=== PATIENT | male | born 1965 | race Caucasian/White ===

== ENCOUNTER 2025-04-10 13:32 | Inpatient (IN) ==
--- NOTE | 2025-04-10 13:59 | Emergency Department Note ---
Impression & Plan GI bleed, Anemia, Abdominal pain, Weight loss ED Provider Note CHIEF COMPLAINT: Abdominal pain HISTORY OF PRESENTING ILLNESS: The patient is a 59-year-old male with no reported past medical history who presents to the emergency department with complaints of losing of 48 pounds in 3 months, diffuse abdominal pain, pain that is worse with eating, as well as nausea and vomiting. He has not been evaluated for this. He has not taken any medications for symptom management. He reports being constipated as he is not eating and drinking much. He denies fever, URI symptoms, chest pain, shortness of breath, back or flank pain, urinary symptoms. REVIEW OF SYSTEMS: See HPI for pertinent positives and pertinent negatives. ALLERGIES: NKDA MEDICATIONS: Denies currently taking medication. PAST MEDICAL HISTORY: Denies past medical history. PHYSICAL EXAM: VITALS: Vitals are noted on the nurses note and reviewed by myself. Vital signs stable. GENERAL: 59-year-old male, in no acute distress, nondiaphoretic, well-developed well-nourished. SKIN: Capillary refill less than 2 seconds. HEENT: Normocephalic. PERRLA. EOMI. Nares patent. Mucous membranes moist. Neck is supple without nuchal rigidity. HEART: Regular rate and rhythm without murmurs gallops or rubs. LUNGS: CTA BL without wheezes, rales or rhonchi. No retractions or accessory muscle use. ABDOMEN: Positive BS x 4. Soft, diffuse tenderness upon palpation, without masses or organomegaly. No guarding or rebound tenderness. RECTAL - No rectal fissures. No active bleeding. A sterile, water-soluble lubricant was applied to the examiner's finger prior to internal exam. No rectal vault tenderness. No rectal masses. Stool Guaiac Test: Hemoccult positive. MUSCULOSKELETAL: No gross musculoskeletal defects. NEURO: Patient was alert and oriented to person place and time. No focal neurological deficits. DIFFERENTIAL DIAGNOSIS: PUD, appendicitis, diverticulitis, bowel obstruction, inflammatory bowel disease, renal colic, biliary pathology, pancreatitis, mesenteric ischemia, malignancy, aortic pathology, infection, genitourinary, UTI, perforated viscus, among others. ED COURSE AND MEDICAL DECISION MAKING: HISTORY FROM INDEPENDENT HISTORIAN: The patient himself and his mother. MEDICATIONS GIVEN: 1 L normal saline, pantoprazole 80 mg IV, 2 units of blood MONITOR: Continuous surveillance monitor: Order was placed for continuous surveillance monitor. Patient was placed on the surveillance monitor and continuous pulse ox. Patient was noted to be in normal sinus rhythm at an initial rate of 74 bpm per my interpretation. EKG: EKG was interpreted by myself as normal sinus rhythm. No obvious arrhythmia. No ST or T wave abnormality. NM interval 156 ms. QT interval 444 ms. No previous EKG for comparison. INTERPRETATION OF LABS: I interpreted the labs with full lab results as below in the lab section of this note. Pertinent lab results discussed in the MDM section below. INTERPRETATION OF IMAGING: Imaging studies were interpreted by myself and read by radiology as per the imaging section of this note. Chest x-ray - No acute cardiopulmonary finding. CT abdomen pelvis - Suspicious for gastritis with possible gastric ulcer. Recommend correlating with endoscopy. No bowel obstruction. Trace pelvic ascites. Colonic diverticulosis. CONSULTATIONS: On-call [facility]ist - Presented the patient to the provider. Patient's hemoglobin is 6.0. 2 units of blood ordered. CT abdomen pelvis suspicious for gastric ulcer. Hemoccult positive. Patient's nausea and pain controlled. They agreed to evaluate the patient and admit to medicine. CRITICAL CARE: I have personally spent greater than 38 minutes of critical care time in the direct management of this patient. This includes bedside care, interpretation of diagnostic studies, and testing, discussion with consultants, patient, and family members, and other required patient management activities. This 38 minutes is in excess of all separately billable procedures. [facility] SUMMARY: I evaluated the 59-year-old male who presents to the ER due to 48 pound weight loss in 3 months and diffuse abdominal pain with associated nausea and vomiting. See HPI and PE above. Patient's vitals are stable. Denies the need for pain or symptom management. 1 L normal saline given. Labs obtained showing no leukocytosis. RBC lowered 2.55. Hemoglobin 6.0. Hematocrit 19.6. 2 units blood ordered. EG initial rate 74 bpm normal sinus rhythm. No obvious abnormality. Coagulation panel within normal limits. No electrolyte abnormality. No DASHAWN. Lipase 43. Troponin 4.5. Urinalysis obtained showing 1+ ketones. No hematuria or bacteriuria. Chest x-ray shows no acute finding. CT abdomen pelvis showing gastritis with possible gastric ulcer. No other abnormality. Hemoccult positive. Patient's presentation consistent with GI bleed. All laboratory and imaging results thoroughly reviewed with the patient and mother. Consultation with the on-call [facility] hospitalist can be seen above. Additionally Protonix given for symptom management. Hospitalist is agreeable to admission to medicine. Patient is agreeable to admission and all questions answered. The patient was admitted in good condition. DIAGNOSIS: GI bleed, anemia, abdominal pain, weight loss The chart was completed utilizing [employer] voice recognition software. Grammatical errors, random word insertions, pronoun errors, and incomplete sentences are an occasional consequence of this system due to software limitations, ambient noise, and hardware issues. Any formal questions or concerns about the content, text, or information contained within the body of this dictation should be directly addressed to the provider for clarification. Attending Attestation: I Viktor Taveras MD I have reviewed the advanced practitioner's documentation and agree with the plan of care. I accept the responsibility for the associated risk of managing the patient. I performed a substantive portion of the visit including involvement in all aspects of medical decision making. Past Med/Surg History Problem List Abnormal finding on imaging Weight loss (Acute) Anemia (Acute) GI bleed (Acute) Abdominal pain (Acute) Medical History Tobacco use Surgical History Hx of tonsillectomy History of appendectomy Family History Other Coronary heart disease Diabetes Hypertension Social History Smoking Status: Current every day smoker Tobacco Type: Cigarettes Cigarettes Per Day: 5-7; Second Hand Exposure: No; Do You Dip or Chew Tobacco: No; Hx Alcohol Use: Yes Alcohol type: beer and wine Alcohol Intake Frequency: Monthly or Less Hx Substance Use: No Preferred Language: Ethiopian Communication Ability: Effective [employer] Required: No Beliefs That Will Affect Care: None Current Living Situation: Spouse Feels Safe at Home: Yes Assistive Devices: None Allergies Allergies Allergy/AdvReac Type Severity Reaction Status Date / Time No Known Allergies Allergy Unverified 04/11/25 12:26 Home Meds Home Medications Medication Instructions Recorded Confirmed No Known Home Medications 04/10/25 04/10/25 Results & Data (ED) Vital Signs Vital Signs - 24 hr 04/10/25 16:00 Pulse Rate [Apical] 72 Respiratory Rate 16 Blood Pressure [Right Arm] 136/91 Blood Pressure Mean [Right Arm] 106 Pulse Oximetry 100 Oxygen Delivery Method Room Air Laboratory Data 04/11/25 14:41 04/11/25 06:17 Lab Results 04/10/25 04/10/25 04/10/25 Range/Units 14:18 14:56 16:28 WBC 5.90 (4.8-10.8) K/ul RBC 2.55 L (4.70-6.10) M/uL Hgb 6.0 L* (14.0-18.0) g/dl Hct 19.6 L* (42.0-52.0) % MCV 76.9 L (80.0-100.0) fL MCH 23.5 L (25.0-34.0) pg MCHC 30.6 L (32.0-36.0) g/dL RDW Std Deviation 46.7 H (36.4-46.3) fL RDW Coeff of Tami 16.6 H (11.5-14.5) % Plt Count 326 (130-400) K/uL MPV 10.4 (9.4-12.4) fL Immature Gran % (Auto) 0.2 % Neut % (Auto) 69.3 % Lymph % (Auto) 23.1 % [place] % (Auto) 6.6 % Eos % (Auto) 0.3 % Baso % (Auto) 0.5 % Neut # (Auto) 4.09 (1.40-6.50) K/uL Lymph # (Auto) 1.36 (1.20-3.40) K/uL Frederick # (Auto) 0.39 (0.11-0.59) K/uL Eos # (Auto) 0.02 (0.00-0.50) K/uL Baso # (Auto) 0.03 (0.00-0.20) K/uL Immature Gran # (Auto) 0.01 (0.01-0.20) K/uL Polychromasia 1+ Hypochromasia Present PT 11.4 (9.0-12.0) Seconds INR 1.1 (0.9-1.1) Sodium 137 (136-145) mmol/L Potassium 3.9 (3.5-5.1) mmol/L Chloride 105 (98-107) mmol/L Carbon Dioxide 26 (21-32) mmol/L Anion Gap 6 (3-11) BUN 21 (6-23) mg/dl Creatinine 1.03 (0.6-1.4) mg/dl Est Cr Clr Drug Dosing 72.2 ml/min eGFR 82.64 BUN/Creatinine Ratio 20.4 H (10-20) Glucose 99 (70-99(Fasting)) mg/dl Calcium 8.8 (8.6-10.3) mg/dl Iron < 10 L (35-175) mcg/dl Unsaturated IBC 311 (155-355) mcg/dl Transferrin 246 (200-360) mg/dl Ferritin 4.5 L (8-388) ng/ml Total Bilirubin 0.3 (0.2-1.0) mg/dl AST 13 (13-39) U/L ALT 10 (7-52) U/L Alkaline Phosphatase 114 H (34-104) U/L Troponin I High Sens 4.5 (0-20) pg/ml Total Protein 6.0 (6.0-8.3) gm/dl Albumin 3.5 (3.4-5.0) gm/dl Globulin 2.5 (2.5-4.0) gm/dl Albumin/Globulin Ratio 1.4 (0.9-2) Lipase 43 (11-82) U/L Vitamin B12 402 (180-914) pg/ml Folate 15.10 (>5.38) ng/ml Urine Color Yellow Urine Appearance Clear (Clear) Urine pH 5.5 (4.5-7.5) Ur Specific [place] 1.025 (1.000-1.030) Urine Protein Negative (Negative) Urine Glucose (UA) Negative (Negative) Urine Ketones 1+ H (Negative) Urine Blood Negative (Negative) Urine Nitrite Negative (Negative) Urine Bilirubin Negative (Negative) Urine Urobilinogen Negative (Negative) Ur Leukocyte Esterase Negative (Negative) Urine Comment Blood Type A Positive Blood Type Recheck A Positive Antibody Screen NEGATIVE Crossmatch See Detail Administered Medications Pantoprazole Sodium 40 mg/ (Dextrose) 100 mls @ 20 mls/hr IV Q5H [facility] Stop: 05/10/25 16:29 Last Admin: 10/21/25 15:30 Dose: 8 mg/hr, 20 mls/hr Documented By: Infusion: 04/11/25 13:30 Dose: Infused Documented By: Admin: 04/11/25 08:30 Dose: 8 mg/hr, 20 mls/hr Documented By: Infusion: 04/11/25 08:30 Dose: Infused Documented By: Admin: 04/11/25 03:52 Dose: 8 mg/hr, 20 mls/hr Documented By: heb Infusion: 04/11/25 03:05 Dose: Infused Documented By: astrid Admin: 04/10/25 22:05 Dose: 8 mg/hr, 20 mls/hr Documented By: astrid Infusion: 04/10/25 22:05 Dose: Infused Documented By: astrid Admin: 04/10/25 17:20 Dose: 8 mg/hr, 20 mls/hr Documented By: CC Sodium Chloride (Nss) 500 mls @ 15 mls/hr IV .Q24H [facility] Stop: 04/12/25 07:29 Last Infusion: 04/11/25 14:35 Dose: Infused Documented By: Admin: 04/11/25 12:35 Dose: 15 mls/hr Documented By: MGR Discontinued Medications Sodium Chloride (Nss) 1,000 mls @ 999 mls/hr IV .Q1H1M ONE Stop: 04/10/25 15:39 Last Infusion: 04/10/25 18:06 Dose: Infused Documented By: amg Admin: 04/10/25 16:01 Dose: 999 mls/hr Documented By: PAXTON Pantoprazole Sodium 80 mg/ (Dextrose) 120 mls @ 480 mls/hr IV NOW ONE Stop: 04/10/25 16:23 Last Infusion: 04/10/25 17:23 Dose: Infused Documented By: Admin: 04/10/25 16:58 Dose: 480 mls/hr Documented By: CC Potassium Chloride/Dextrose/Sod Cl (D5nss + 20meq Kcl) 20 meq in 1,000 mls @ 50 mls/hr IV .Q20H [facility] Stop: 04/11/25 13:29 Last Admin: 04/10/25 23:44 Dose: 50 mls/hr Documented By: astrid Ioversol (Optiray 320 100ml) 90 ml IV ONCE ONE Stop: 04/10/25 15:34 Last Admin: 04/10/25 15:34 Dose: 90 ml Documented By: LEXIE Lidocaine HCl (Lidocaine 2% 2 Ml Vial/Amp(20mg/Ml)) Confirm Administered Dose 80 mg INFIL .STK-MED ONE Stop: 04/11/25 12:48 Last Admin: 04/11/25 14:03 Dose: Not Given Documented By: BERNADETTE Pantoprazole Sodium (Pantoprazole Bolus/Drip) 1 each IV NOW STA Stop: 04/10/25 16:10 Last Admin: 04/10/25 19:32 Dose: Not Given Documented By: astrid Propofol (Propofol Iv Emulsion 10 Mg/Ml 20 Ml Vial) Confirm Administered Dose 200 mg IV .STK-MED ONE Stop: 04/11/25 12:48 Last Admin: 04/11/25 14:03 Dose: Not Given Documented By: BERNADETTE Discharge Plan Visit Data Chief Complaint: Abdominal Pain Stated Complaint: ABD PAIN ED Provider: Viktor Taveras ED Midlevel Provider: Deborah Gamez Discharge Problem: GI bleed, Anemia, Abdominal pain, Weight loss Patient Disposition: Admitted As Inpatient Condition: Good Discharge Instructions Interventions: ED Discharge Assessment Last Done: 04/10/25 18:27 Discharge Problem: GI bleed Qualifiers: GI bleed type/associated pathology: unspecified gastrointestinal hemorrhage type Qualified Code(s): K92.2 - Gastrointestinal hemorrhage, unspecified Abdominal pain Qualifiers: Abdominal location: generalized Qualified Code(s): R10.84 - Generalized abdominal pain
[2025-04-10 14:37] LABS: Appearance Urine Clear (Clear); Glucose Urine UA Negative (Negative)
[2025-04-10 14:44] LABS: Hematocrit (blood only) 19.6 % (42.0-52.0); Hemoglobin 6.0 g/dl (14.0-18.0); Mean Corpuscular Hemoglobin 23.5 pg (25.0-34.0); Mean Corpuscular Volume 76.9 fL (80.0-100.0); Platelet Count 326 K/uL (130-400); RDW Standard Deviation 46.7 fL (36.4-46.3); Red Blood Count 2.55 M/uL (4.70-6.10); White Blood Count 5.90 K/ul (4.8-10.8)
[2025-04-10 14:47] LABS: Albumin Level 3.5 gm/dl (3.4-5.0); Anion Gap 6.0 (3-11); Bilirubin,Total 0.3 mg/dl (0.2-1.0); Calcium 8.8 mg/dl (8.6-10.3); Carbon Dioxide 26.0 mmol/L (21-32); Chloride 105.0 mmol/L (98-107); Potassium 3.9 mmol/L (3.5-5.1); Sodium 137.0 mmol/L (136-145)
[2025-04-10 14:53] LABS: Alanine Aminotransferase 10.0 U/L (7-52); Albumin Globulin Ratio 1.4 (0.9-2); Alkaline Phosphatase 114.0 U/L (34-104); Blood Urea Nitrogen 21.0 mg/dl (6-23); Creatinine Clr Calc Pharmacy 72.2 ml/min; Globulin 2.5 gm/dl (2.5-4.0); Glucose 99.0 mg/dl (70-99(Fasting)); Lipase 43.0 U/L (11-82); Total Protein 6.0 gm/dl (6.0-8.3)
[2025-04-10 14:54] LABS: Hypochromasia Present; Immature Granulocytes # (auto) 0.01 K/uL (0.01-0.20); Immature Granulocytes % (auto) 0.2 %; Polychromasia 1+
[2025-04-10] MEDS: OPTIRAY 320 100ml IV ONE (15:34)
[2025-04-10] MEDS: SODIUM CHLORIDE 0.9% 1,000 ML IV ONE (16:01)
--- NOTE | 2025-04-10 16:03 | CT Scan Report ---
ABDOMEN AND PELVIS CT WITH IV CONTRAST CT DOSE: 451.02 mGy.cm HISTORY: Acute onset abdominal pain with weight loss abdominal pain, weight loss TECHNIQUE: Multiaxial CT images of the abdomen and pelvis were performed following the IV administrat ion of 90 cc of Optiray, A dose lowering technique was utilized adhering to the principles of ALARA. COMPARISON STUDY: None. FINDINGS: Partially imaged coronary artery calcifications. Mild dependent subsegmental bibasilar atel ectasis. No pneumatosis or pneumoperitoneum. Calcified granulomata of the spleen. Unremarkable pancre as, gallbladder and adrenal glands. Numerous subcentimeter ill-defined hypodense foci are noted throu ghout the liver, most of which are too small to characterize. Patency of the hepatic and portal veins . Unremarkable kidneys. No hydronephrosis. Decompressed urinary bladder with mild wall thickening. Pros tatomegaly. Atherosclerosis of the aorta and branch vessels. No lymphadenopathy is seen. There is diffuse wall thickening throughout the stomach with possible mucosal ulceration of the depen dent gastric body/lesser curvature on image 70 series 3. Trace free pelvic fluid. Mild colonic divert iculosis without acute diverticulitis. Pake-kx-jyuktwve colonic fecal retention. The appendix appears to be surgically absent. Left upper quadrant collateral vessels are noted along the greater curvatur e of the stomach along with possible subcentimeter lymph nodes, image 58 series 3. Trace fluid within the right inguinal canal. No acute fracture or destructive bone lesion. Scoliotic curvature of the s pine. IMPRESSION: 1. Findings suspicious for gastritis with possible gastric ulcer. Findings could be correlated with e ndoscopy to exclude a mucosal lesion. 2. No bowel obstruction, bowel wall thickening or pneumoperitoneum. 3. Trace pelvic ascites. 4. Colonic diverticulosis. ACT 112: Negative or not required by law. The above report was generated using voice recognition software. It may contain grammatical, syntax o r spelling errors. Electronically signed by: Anup Kemp M.D. 04/10/2025 4:01 PM
[2025-04-10] MEDS ORDERED: SODIUM CHLORIDE 0.9% 100 ML IV PRN (16:09)
--- NOTE | 2025-04-10 16:48 | History & Physical Report ---
<Statement entered by Yemi Ferrera, DO - 04/10/25 19:43> I have seen and examined the patient and have discussed the case with the advance practice provider. I have reviewed the advanced practitioner's documentation, and I agree with, and take responsibility for that plan of care. Patient has noted progressive fatigue over several weeks. However, he was still able to complete his work. Finally came to the emergency room today mostly because he has dry heaving at work and some stomach discomfort. He denies any NSAID use. He denies any excessive alcohol use. He has never seen blood anytime he has had dry heaves or emesis. He states he really does not inspect his stool so cannot say if he is ever seeing black, tarry, bloody stools. Has never noticed that the toilet bowl looked bloody or black. Patient states that his appetite and his oral intake has significantly decreased over the past several months. He has lost greater than 40 pounds. Essentially only eating crackers and a few chips per day. Not eating due to significant abdominal pain and discomfort. Exam: Abdominal: Patient tender globally, with some guarding but no rigidity, no masses. Plan of care as outlined below, transfusion, PPI, GI consultation. I spent a total of 22 minutes coordinating, documenting, and providing care for this patient excluding time spent by another provider/QHP. Date of Service April 10, 2025 Assessment & Plan (1) Abdominal pain: (2) GI bleed: (3) Anemia: Plan: #Gastric Ulcer Patient is a 59 year old male with PMH tobacco use, reported "Blood cancer", otherwise hasn't followed with PCP for many years presented to ER with c/o N/V and upper abdominal pain, decreased oral intake and 40 pound weight loss x 3 months. In ER vitals stable H/H: 12/08, Plt: WNL. INR WNL. +heme positive stool in ER. no prior labs for review CT Abd/pelvis: Findings suspicious for gastritis with possible gastric ulcer. No bowel obstruction, bowel wall thickening or pneumoperitoneum. Trace pelvic ascites. Colonic diverticulosis. In ER given 1L NSS, PPI bolus and drip started Obtain anemia labs Typed and crossed 2 units PRBC and ordered for transfusion in ER Trend H&H NPO IVF PPI drip GI consult CBC, BMP in am #Tobacco use Smoking for 48 years. Has cut back to 6 cigarettes daily Denies nicotine patch #Reported "blood cancer" Reports Blood cancer and pt points to his nose and internal eye region as source that was treated with radiation over 8 years ago [place] a [place] state Unclear diagnosis. No records available for review at this time DVT Prophylaxis SCDs Admit med tele Full Code as per discussion with pt, however reports would not want maintained on ventilator if poor prognosis Does not follow with PCP for routine care Pt was seen and care coordinated with Dr Ferrera. See addendum I spent a total of 70 minutes reviewing notes, outpatient records, labs, medication, coordinating, documenting and providing care for this patient excluding time spent in the performance of separately billed services and excluding time spent by another provider/QHP. History of Present Illness Chief Complaint: abdominal pain Primary Care Provider: NO PCP Patient is a 59 year old male with PMH tobacco use and he reports h/o "Blood cancer and points to his nose and internal eye region as source" that was treated with radiation over 8 years ago [place] a different state, otherwise hasn't followed with PCP for many years presented to ER with c/o N/V and upper abdominal pain x 3 months. Patient reports for the past 3 months has been having nausea, vomiting, and epigastric discomfort. States is unable to eat or drink secondary to nausea and vomiting soon after attempted oral intake. He reports he has not been examining stools. Reports has been having constipation as he has been having very limited oral intake. Reports has lost over 40 pounds in the past 3 months. Denies aspirin, NSAID use. States rarely consumes EtOH and has not been consuming for past couple months since having nausea and abdominal pain. Denies night sweats, heartburn or indigestion, history ulcer or GI bleed. Denies history of blood transfusion. Reports has been getting SOB with exertion past month. States came today as family was urging him to be evaluated. States has dry cough that he feels is from dry throat and needing to clear his throat. Denies fever/chills, diaphoresis, hematemesis, KRAMER, dizziness, syncope, CP, palpitations, sore throat, rhinorrhea, paresthesias, weakness, extremity edema, rashes, urinary symptoms. Allergies Allergy/AdvReac Type Severity Reaction Status Date / Time No Known Allergies Allergy Unverified 04/10/25 15:58 Home Medications Medication Instructions Recorded Confirmed Type No Known Home Medications 04/10/25 04/10/25 History Past Med/Surg History Problem List (Updated 04/10/25 @ 17:42 by Abby Gutierrez PA-C) Anemia GI bleed Abdominal pain Medical History Tobacco use Surgical History (Updated 04/10/25 @ 17:42 by Abby Gutierrez PA-C) Hx of tonsillectomy History of appendectomy Family History (Updated 04/10/25 @ 17:43 by Abby Gutierrez PA-C) Other Coronary heart disease Diabetes Hypertension Social History (Updated 04/10/25 @ 17:42 by Abby Gutierrez PA-C) Smoking Status: Never smoker Hx Alcohol Use: Yes Alcohol Intake Frequency: Monthly or Less Hx Substance Use: No Preferred Language: Cambodian Feels Safe at Home: Yes Review of Systems Review of Systems: All systems reviewed & are unremarkable except as noted in HPI & below Physical Exam Physical Exam: General: no acute distress, +pale, ill appearing thin male Head: normocephalic, atraumatic Eyes: conjunctiva pale, anicteric ENT: normal inspection external ears, nose, mucous membranes moist Neck: supple, trachea midline Lungs: clear, no respiratory distress, no wheezing/rhonchi/rales CV: RRR, no pretibial edema Abd: normal BS, soft, +tenderness to palpation with guarding to epigastric region, RUQ and LUQ Ext: no cyanosis, no calf tenderness Neuro: A&O x 3, no focal deficits noted, normal affect Skin: +pale, warm, dry Results & Data Results & Data Vital Signs (Past 12 Hours) Vital Signs Temp Pulse Pulse Resp BP BP Pulse Ox 04/10/25 16:00 72 16 136/91 100 04/10/25 14:23 75 16 138/58 L 100 04/10/25 13:48 36.2 C L 105 H 20 134/75 100 O2 Del Method 04/10/25 16:00 Room Air 04/10/25 14:23 Room Air 04/10/25 13:48 Room Air Laboratory Results Short CBC 04/10/25 Range/Units 14:18 WBC 5.90 (4.8-10.8) K/ul Hgb 6.0 L* (14.0-18.0) g/dl Hct 19.6 L* (42.0-52.0) % Plt Count 326 (130-400) K/uL BMP 04/10/25 14:18 Sodium 137 Potassium 3.9 Chloride 105 Carbon Dioxide 26 BUN 21 Creatinine 1.03 Glucose 99 Calcium 8.8 Liver Function 04/10/25 Range/Units 14:18 Total Bilirubin 0.3 (0.2-1.0) mg/dl AST 13 (13-39) U/L ALT 10 (7-52) U/L Alkaline Phosphatase 114 H (34-104) U/L Albumin 3.5 (3.4-5.0) gm/dl Urine 04/10/25 Range/Units 14:18 Urine Color Yellow Urine Appearance Clear (Clear) Urine pH 5.5 (4.5-7.5) Ur Specific [place] 1.025 (1.000-1.030) Urine Protein Negative (Negative) Urine Glucose (UA) Negative (Negative) Diagnostic Findings Abdomen/Pelvis CT 04/10/25 13:[address] WITH IV CONTRAST CT DOSE: 451.02 mGy.cm HISTORY: Acute onset abdominal pain with weight loss abdominal pain, weight loss TECHNIQUE: Multiaxial CT images of the abdomen and pelvis were performed following the IV administration of 90 cc of Optiray, A dose lowering technique was utilized adhering to the principles of ALARA. COMPARISON STUDY: None. FINDINGS: Partially imaged coronary artery calcifications. Mild dependent sub segmental bibasilar atelectasis. No pneumatosis or pneumoperitoneum. Calcified granulomata of the spleen. Unremarkable pancreas, gallbladder and adrenal glands. Numerous subcentimeter ill-defined hypodense foci are noted throughout the liver, most of which are too small to characterize. Patency of the hepatic and portal veins. Unremarkable kidneys. No hydronephrosis. Decompressed urinary bladder with mild wall thickening. Prostatomegaly. Atherosclerosis of the aorta and branch vessels. No lymphadenopathy is seen. There is diffuse wall thickening throughout the stomach with possible mucosal ulceration of the dependent gastric body/lesser curvature on image 70 series 3. Trace free pelvic fluid. Mild colonic diverticulosis without acute diverticulitis. [id number] colonic fecal retention. The appendix appears to be surgically absent. Left upper quadrant collateral vessels are noted along the greater curvature of the stomach along with possible subcentimeter lymph nodes, image 58 series 3. Trace fluid within the right inguinal canal. No acute fracture or destructive bone lesion. Scoliotic curvature of the spine. IMPRESSION: 1. Findings suspicious for gastritis with possible gastric ulcer. Findings could be correlated with endoscopy to exclude a mucosal lesion. 2. No bowel obstruction, bowel wall thickening or pneumoperitoneum. 3. Trace pelvic ascites. 4. Colonic diverticulosis. ACT 112: Negative or not required by law. The above report was generated using voice recognition software. It may contain grammatical, syntax or spelling errors. Electronically signed by: Anup Kemp M.D. 04/10/2025 4:01 PM ECG Additional Comments: sinus rhythm, rate 74 per my interpretation
[2025-04-10 17:09] LABS: INR 1.1 (0.9-1.1); Prothrombin Time 11.4 Seconds (9.0-12.0)
[2025-04-10] MEDS: PANTOprazole 40 MG in DEXTROSE 5% MINI-B 100 ML IV SCH (17:20)
[2025-04-10 17:44] LABS: Ferritin 4.5 ng/ml (8-388)
[2025-04-10 17:45] LABS: Iron < 10 mcg/dl (35-175); Transferrin 246 mg/dl (200-360)
[2025-04-10 18:10] LABS: Folate (Folic Acid),Ser orPlas 15.1 ng/ml (>5.38)
[2025-04-10 18:11] LABS: Vitamin B12 402.0 pg/ml (180-914)
--- NOTE | 2025-04-10 18:19 | XRay Report ---
Exam(s): XR CXR 1 VIEW EXAM: XR Chest, 1 View CLINICAL HISTORY: Reason for exam: cough. TECHNIQUE: Frontal view of the chest. COMPARISON: None FINDINGS: Hardware: None. Lungs/pleura: Normal. No focal consolidation. No pleural effusion or pneumothorax. Heart/mediastinum: Normal. No cardiomegaly. Soft tissues: Unremarkable. Bones: No acute fracture. Upper abdomen: Normal. IMPRESSION: No acute disease identified. Electronically signed by: Antonieta Freeman M.D. 04/10/25 18:18 PM
[2025-04-10] MEDS ORDERED: POLYETHYLENE (MIRALAX) 17 GM PACK PO PRN (19:29)
[2025-04-10] MEDS ORDERED: PANTOprazole 40 MG in DEXTROSE 5% MINI-B 100 ML IV SCH (19:29)
[2025-04-10] MEDS ORDERED: ACETAMINOPHEN 325 MG TAB PO PRN (19:29)
[2025-04-10] MEDS: PANTOPRAZOLE BOLUS/DRIP IV STA (19:32)
[2025-04-10] MEDS: D5NSS + 20MEQ KCL 20 MEQ/1,000 ML BAG IV SCH (23:44)
[2025-04-10 23:57] LABS: Hematocrit (blood only) 21.6 % (42.0-52.0); Hemoglobin 6.9 g/dl (14.0-18.0)
[2025-04-11] MEDS ORDERED: SODIUM CHLORIDE 0.9% 100 ML IV PRN (00:01)
[2025-04-11 06:38] LABS: Hematocrit (blood only) 24.2 % (42.0-52.0); Hemoglobin 7.7 g/dl (14.0-18.0); Mean Corpuscular Hemoglobin 24.4 pg (25.0-34.0); Mean Corpuscular Volume 76.8 fL (80.0-100.0); Platelet Count 258 K/uL (130-400); RDW Standard Deviation 46.0 fL (36.4-46.3); Red Blood Count 3.15 M/uL (4.70-6.10); White Blood Count 6.13 K/ul (4.8-10.8)
[2025-04-11 07:03] LABS: Anion Gap 3.0 (3-11); Blood Urea Nitrogen 16.0 mg/dl (6-23); Calcium 8.2 mg/dl (8.6-10.3); Carbon Dioxide 26.0 mmol/L (21-32); Chloride 109.0 mmol/L (98-107); Creatinine Clr Calc Pharmacy 71.8 ml/min; Glucose 92.0 mg/dl (70-99(Fasting)); Potassium 4.2 mmol/L (3.5-5.1); Sodium 138.0 mmol/L (136-145)
--- NOTE | 2025-04-11 08:59 | Gastrointestinal Consultation ---
Date of Consultation April 11, 2025 Assessment & Plan (1) Anemia: 59 year old male with history of tobacco use, unspecified cancer s/p chemo/radiation about 6 years ago who presented to the ED w/ abd pain, nausea/vomiting and weight loss - admitted w/ abnormal imaging w/ diffuse wall thickening throughout the stomach with possible mucosal ulceration of the dependent gastric body/lesser curvature, CASSIA requiring 2 units RBCs - NPO - Continue IV PPI bolus/drip - Trend H&H - Transfuse PRN per primary team - Monitor and document GI output - Iron replacement - Tentative plan for EGD 04/11 after discussing w/ attending - Risks, benefits and procedure discussed - Will need OP colonoscopy We appreciate assistance in the management of any serological abnormality and corrections to include: hemoglobin >7, INR <2, platelets >50,000, potassium levels >3.5 but <5.3, and sodium levels within 5 points of the reference range prior to endoscopic evaluation. I spent a total of 60 minutes on the date of service in review of patient's record, and previously obtained information in person and appropriate medical visit, discussion and education of plan, with patient and/or caregiver, placing orders for tests/referral/procedures as medically necessary and documentation of pertinent clinical information in patient's medical records for their visit today. (2) Abdominal pain: (3) Weight loss: (4) Abnormal finding on imaging: Supervising Physician Co-Signing Physician Notes I personally saw and examined the patient. I have reviewed the chart and agree with the documentation provided by the PRESALES CONSULTANT including discussion about the assessment, treatment and plan. Briefly, 59 year old male with history of tobacco use, unspecified cancer s/p chemo/radiation about 6 years ago who presented to the ED w/ abd pain, nausea/vomiting and weight loss - admitted w/ abnormal imaging w/ diffuse wall thickening throughout the stomach with possible mucosal ulceration of the dependent gastric body/lesser curvature, CASSIA requiring 2 units RBCs. Has pain with meals with nausea and vomiting. No bleeding. Will get an EGD today to evaluate for gastric ulcer but need to rule out a mass lesion as well. N.p.o. and PPI twice daily IV today History of Present Illness Reason for Consultation: GI bleed, anemia, likely gastric ulcer Requesting Physician: Xiomara Stern MD Attending Physician: Xiomara Stern MD History of Present Illness 59 year old male with history of tobacco use, unspecified cancer s/p chemo/radiation about 6 years ago who presented to the ED w. abd pain, nausea/vomiting and weight loss - admitted w/ abnormal imaging. GI was asked to evaluate for suspected GI bleed, anemia and suspected gastric ulcer. He notes about three months ago he developed severe upper abd pain. This pain is constant, explained as burning, sharp, stabbing. There is associated nausea. Decreased appetite. Associated vomiting. Emesis is clear. Has not seen black or bloody emesis. No reflux/regurgitation. No dysphagia. He endorses associated 35/40 lb weight loss. He does report feeling more constipated but relates this to his decreased oral intake. He has had increased fatigue, weakness and SOB w/ activity. HGB 6 s/p 2 units RBC w/ HGB 7.7 this AM MCV 76, iron < 10, ferritin 4.5 BUN non elevated + tobacco use + social ETOH use No NSAIDs No AC CTAP w/ Findings suspicious for gastritis with possible gastric ulcer. Findings could be correlated with endoscopy to exclude a mucosal lesion. No bowel obstruction, bowel wall thickening or pneumoperitoneum.Trace pelvic ascites. Colonic diverticulosis. Allergies Allergy/AdvReac Type Severity Reaction Status Date / Time No Known Allergies Allergy Unverified 04/11/25 12:26 Home Medications Medication Instructions Recorded Confirmed Type No Known Home Medications 04/10/25 04/10/25 History Patient History Medical History Tobacco use Surgical History (Updated 04/10/25 @ 17:42 by Abby Gutierrez PA-C) Hx of tonsillectomy History of appendectomy Family History (Updated 04/10/25 @ 17:43 by Abby Gutierrez PA-C) Other Coronary heart disease Diabetes Hypertension Social History (Updated 04/10/25 @ 17:42 by Abby Gutierrez PA-C) Smoking Status: Current every day smoker Tobacco Type: Cigarettes Cigarettes Per Day: 5-7; Second Hand Exposure: No; Do You Dip or Chew Tobacco: No; Hx Alcohol Use: Yes Alcohol type: beer and wine Alcohol Intake Frequency: Monthly or Less Hx Substance Use: No Preferred Language: Yoruba Communication Ability: Effective Composition Floor Setter Required: No Beliefs That Will Affect Care: None Current Living Situation: Spouse Feels Safe at Home: Yes Assistive Devices: None Review of Systems Review of Systems: All other findings negative except as noted in HPI. Physical Exam Constitutional: WD/WN, vitals as above Respiratory: normal respiratory effort, lungs clear to auscultation Cardiovascular: RRR, no murmur, no edema Gastrointestinal (Abdomen): normal bowel sounds, soft, nontender, no hepatosplenomegaly Skin: no rashes, warm and dry Results & Data Vital Signs (Past 12 Hours) Vital Signs Temp Pulse Pulse Resp BP BP Pulse Ox 04/11/25 07:56 97.7 F 66 14 143/72 H 97 04/11/25 07:35 58 L 04/11/25 03:57 97.7 F 60 16 158/81 H 04/11/25 02:57 97.9 F 64 18 149/88 H 97 04/11/25 01:57 98.1 F 66 18 138/67 97 04/11/25 01:27 98.1 F 63 18 99 04/11/25 01:12 97.9 F 62 18 145/72 H 98 04/11/25 00:50 97.9 F 66 18 137/71 04/10/25 22:00 62 04/10/25 21:46 98.1 F 63 18 154/82 H 04/10/25 20:55 98.2 F 62 18 153/70 H O2 Del Method 04/11/25 07:56 Room Air 04/11/25 07:35 04/11/25 03:57 04/11/25 02:57 04/11/25 01:57 04/11/25 01:27 04/11/25 01:12 04/11/25 00:50 04/10/25 22:00 04/10/25 21:46 04/10/25 20:55 Laboratory Results 04/11/25 04/10/25 04/10/25 Range/Units 06:17 23:00 16:28 WBC 6.13 (4.8-10.8) K/ul RBC 3.15 L (4.70-6.10) M/uL Hgb 7.7 L 6.9 L* (14.0-18.0) g/dl Hct 24.2 L 21.6 L (42.0-52.0) % MCV 76.8 L (80.0-100.0) fL MCH 24.4 L (25.0-34.0) pg MCHC 31.8 L (32.0-36.0) g/dL RDW Std Deviation 46.0 (36.4-46.3) fL RDW Coeff of Tami 16.4 H (11.5-14.5) % Plt Count 258 (130-400) K/uL MPV 10.1 (9.4-12.4) fL Immature Gran % (Auto) % Neut % (Auto) % Lymph % (Auto) % [place] % (Auto) % Eos % (Auto) % Baso % (Auto) % Neut # (Auto) (1.40-6.50) K/uL Lymph # (Auto) (1.20-3.40) K/uL [place] # (Auto) (0.11-0.59) K/uL Eos # (Auto) (0.00-0.50) K/uL Baso # (Auto) (0.00-0.20) K/uL Immature Gran # (Auto) (0.01-0.20) K/uL Polychromasia Hypochromasia PT 11.4 (9.0-12.0) Seconds INR 1.1 (0.9-1.1) Sodium 138 (136-145) mmol/L Potassium 4.2 (3.5-5.1) mmol/L Chloride 109 H (98-107) mmol/L Carbon Dioxide 26 (21-32) mmol/L Anion Gap 3 (3-11) BUN 16 (6-23) mg/dl Creatinine 1.03 (0.6-1.4) mg/dl Est Cr Clr Drug Dosing 71.8 ml/min eGFR 82.64 BUN/Creatinine Ratio 15.5 (10-20) Glucose 92 (70-99(Fasting)) mg/dl Calcium 8.2 L (8.6-10.3) mg/dl Iron < 10 L (35-175) mcg/dl Unsaturated IBC 311 (155-355) mcg/dl Transferrin 246 (200-360) mg/dl Ferritin 4.5 L (8-388) ng/ml Total Bilirubin (0.2-1.0) mg/dl AST (13-39) U/L ALT (7-52) U/L Alkaline Phosphatase (34-104) U/L Troponin I High Sens 4.5 (0-20) pg/ml Total Protein (6.0-8.3) gm/dl Albumin (3.4-5.0) gm/dl Globulin (2.5-4.0) gm/dl Albumin/Globulin Ratio (0.9-2) Lipase (11-82) U/L Vitamin B12 402 (180-914) pg/ml Folate 15.10 (>5.38) ng/ml Urine Color Urine Appearance (Clear) Urine pH (4.5-7.5) Ur Specific [place] (1.000-1.030) Urine Protein (Negative) Urine Glucose (UA) (Negative) Urine Ketones (Negative) Urine Blood (Negative) Urine Nitrite (Negative) Urine Bilirubin (Negative) Urine Urobilinogen (Negative) Ur Leukocyte Esterase (Negative) Urine Comment Blood Type Blood Type Recheck A Positive Antibody Screen Crossmatch 04/10/25 04/10/25 Range/Units 14:56 14:18 WBC 5.90 (4.8-10.8) K/ul RBC 2.55 L (4.70-6.10) M/uL Hgb 6.0 L* (14.0-18.0) g/dl Hct 19.6 L* (42.0-52.0) % MCV 76.9 L (80.0-100.0) fL MCH 23.5 L (25.0-34.0) pg MCHC 30.6 L (32.0-36.0) g/dL RDW Std Deviation 46.7 H (36.4-46.3) fL RDW Coeff of Tami 16.6 H (11.5-14.5) % Plt Count 326 (130-400) K/uL MPV 10.4 (9.4-12.4) fL Immature Gran % (Auto) 0.2 % Neut % (Auto) 69.3 % Lymph % (Auto) 23.1 % [place] % (Auto) 6.6 % Eos % (Auto) 0.3 % Baso % (Auto) 0.5 % Neut # (Auto) 4.09 (1.40-6.50) K/uL Lymph # (Auto) 1.36 (1.20-3.40) K/uL [place] # (Auto) 0.39 (0.11-0.59) K/uL Eos # (Auto) 0.02 (0.00-0.50) K/uL Baso # (Auto) 0.03 (0.00-0.20) K/uL Immature Gran # (Auto) 0.01 (0.01-0.20) K/uL Polychromasia 1+ Hypochromasia Present PT (9.0-12.0) Seconds INR (0.9-1.1) Sodium 137 (136-145) mmol/L Potassium 3.9 (3.5-5.1) mmol/L Chloride 105 (98-107) mmol/L Carbon Dioxide 26 (21-32) mmol/L Anion Gap 6 (3-11) BUN 21 (6-23) mg/dl Creatinine 1.03 (0.6-1.4) mg/dl Est Cr Clr Drug Dosing 72.2 ml/min eGFR 82.64 BUN/Creatinine Ratio 20.4 H (10-20) Glucose 99 (70-99(Fasting)) mg/dl Calcium 8.8 (8.6-10.3) mg/dl Iron (35-175) mcg/dl Unsaturated IBC (155-355) mcg/dl Transferrin (200-360) mg/dl Ferritin (8-388) ng/ml Total Bilirubin 0.3 (0.2-1.0) mg/dl AST 13 (13-39) U/L ALT 10 (7-52) U/L Alkaline Phosphatase 114 H (34-104) U/L Troponin I High Sens (0-20) pg/ml Total Protein 6.0 (6.0-8.3) gm/dl Albumin 3.5 (3.4-5.0) gm/dl Globulin 2.5 (2.5-4.0) gm/dl Albumin/Globulin Ratio 1.4 (0.9-2) Lipase 43 (11-82) U/L Vitamin B12 (180-914) pg/ml Folate (>5.38) ng/ml Urine Color Yellow Urine Appearance Clear (Clear) Urine pH 5.5 (4.5-7.5) Ur Specific [place] 1.025 (1.000-1.030) Urine Protein Negative (Negative) Urine Glucose (UA) Negative (Negative) Urine Ketones 1+ H (Negative) Urine Blood Negative (Negative) Urine Nitrite Negative (Negative) Urine Bilirubin Negative (Negative) Urine Urobilinogen Negative (Negative) Ur Leukocyte Esterase Negative (Negative) Urine Comment Blood Type A Positive Blood Type Recheck Antibody Screen NEGATIVE Crossmatch See Detail PG Care Time/CCT Total # of Minutes Spent Total Time Spent with Patient: Total time spent is greater than 50% in coordination of care (as documented) at patient's floor/unit and/or counseling patient: Coding Level of Care Code 00357 IN/OBS CONSULT LVL 4,60M Diagnoses Anemia D64.9 Abdominal pain R10.9 Weight loss R63.4 Abnormal finding on imaging R93.89
--- NOTE | 2025-04-11 09:57 | Anesthesiology Consultation ---
Date of Service April 11, 2025 History Surgery Operation Date: 04/11/25 16:55 Proposed Procedures p Esophagogastroduodenoscopy Callie Ledesma MD Height/Weight Height: 5 ft 10 in Weight: 67.4 kg Allergies Allergy/AdvReac Type Severity Reaction Status Date / Time No Known Allergies Allergy Unverified 04/10/25 15:58 Medications Home Medications Medication Instructions Recorded Confirmed Last Taken No Known Home Medications 04/10/25 04/10/25 Unknown Active Medications Generic Name Dose Route Start Last Admin Trade Name Freq PRN Reason Stop Dose Admin Pantoprazole Sodium 40 mg/ 100 mls @ 20 mls/hr 04/10/25 16:30 04/11/25 08:30 Dextrose IV 05/10/25 16:29 8 mg/hr Q5H MARIBEL 20 mls/hr Administration 8 MG/HR Potassium Chloride/Dextrose/Sod Cl 20 meq in 1,000 mls @ 50 mls/hr 04/10/25 19:29 04/10/25 23:44 D5nss + 20meq Kcl IV 04/11/25 13:29 50 mls/hr .Q20H MARIBEL Administration Past Medical History Medical History Tobacco use Past Family History Family History (Updated 04/10/25 @ 17:43 by Abby Gutierrez PA-C) Other Coronary heart disease Diabetes Hypertension Past Surgical History Surgical History (Updated 04/10/25 @ 17:42 by Abby Gutierrez PA-C) Hx of tonsillectomy History of appendectomy Social History Smoking Status: Current every day smoker Smoking cigarettes per day: 5-7 Do You Dip or Chew Tobacco: No Hx Alcohol Use: Yes Alcohol type: beer and wine alcohol intake frequency: holidays/special occasions only Hx Substance Use: No substance use type: does not use Physical Exam Vital Signs Last Vital Signs Temp 36.5 C 04/11/25 07:56 Pulse 66 04/11/25 07:56 Resp 14 04/11/25 07:56 BP 143/72 H 04/11/25 07:56 Pulse Ox 97 04/11/25 07:56 O2 Del Method Room Air 04/11/25 07:56 O2 Flow Rate 0 04/10/25 18:25 Testing Laboratory Results 04/11/25 06:17 04/11/25 06:17 PT 11.4 Seconds (9.0-12.0) 04/10/25 16: INR 1.1 (0.9-1.1) 04/10/25 16:28 Urine Color Yellow 04/10/25 14:18 Urine Appearance Clear (Clear) 04/10/25 14:18 Urine pH 5.5 (4.5-7.5) 04/10/25 14:18 Ur Specific [place] 1.025 (1.000-1.030) 04/10/25 14:18 Urine Protein Negative (Negative) 04/10/25 14:18 Urine Glucose (UA) Negative (Negative) 04/10/25 14:18 Urine Ketones 1+ (Negative) H 04/10/25 14:18 Urine Nitrite Negative (Negative) 04/10/25 14:18 Ur Leukocyte Esterase Negative (Negative) 04/10/25 14:18 Blood Type A Positive 04/10/25 14:56 Antibody Screen NEGATIVE 04/10/25 14:56 Data & Results Home Medications Medication Instructions Recorded Confirmed Type No Known Home Medications 04/10/25 04/10/25 History ECOG/Weight/Vitals Weight: 67.4 kg Vitals Signs: Vital Signs Temp Pulse Pulse Resp BP BP Pulse Ox 04/11/25 07:56 36.5 C 66 14 143/72 H 97 04/11/25 07:35 58 L 04/11/25 03:57 36.5 C 60 16 158/81 H 04/11/25 02:57 36.6 C 64 18 149/88 H 97 04/11/25 01:57 36.7 C 66 18 138/67 97 04/11/25 01:27 36.7 C 63 18 99 04/11/25 01:12 36.6 C 62 18 145/72 H 98 04/11/25 00:50 36.6 C 66 18 137/71 04/10/25 22:00 62 O2 Del Method 04/11/25 07:56 Room Air 04/11/25 07:35 04/11/25 03:57 04/11/25 02:57 04/11/25 01:57 04/11/25 01:27 04/11/25 01:12 04/11/25 00:50 04/10/25 22:00 Laboratory Values 04/11/25 04/10/25 04/10/25 Range/Units 06:17 23:00 16:28 WBC 6.13 (4.8-10.8) K/ul RBC 3.15 L (4.70-6.10) M/uL Hgb 7.7 L 6.9 L* (14.0-18.0) g/dl Hct 24.2 L 21.6 L (42.0-52.0) % MCV 76.8 L (80.0-100.0) fL MCH 24.4 L (25.0-34.0) pg MCHC 31.8 L (32.0-36.0) g/dL RDW Std Deviation 46.0 (36.4-46.3) fL RDW Coeff of Tami 16.4 H (11.5-14.5) % Plt Count 258 (130-400) K/uL MPV 10.1 (9.4-12.4) fL Immature Gran % (Auto) % Neut % (Auto) % Lymph % (Auto) % [place] % (Auto) % Eos % (Auto) % Baso % (Auto) % Neut # (Auto) (1.40-6.50) K/uL Lymph # (Auto) (1.20-3.40) K/uL [place] # (Auto) (0.11-0.59) K/uL Eos # (Auto) (0.00-0.50) K/uL Baso # (Auto) (0.00-0.20) K/uL Immature Gran # (Auto) (0.01-0.20) K/uL Polychromasia Hypochromasia PT 11.4 (9.0-12.0) Seconds INR 1.1 (0.9-1.1) Sodium 138 (136-145) mmol/L Potassium 4.2 (3.5-5.1) mmol/L Chloride 109 H (98-107) mmol/L Carbon Dioxide 26 (21-32) mmol/L Anion Gap 3 (3-11) BUN 16 (6-23) mg/dl Creatinine 1.03 (0.6-1.4) mg/dl Est Cr Clr Drug Dosing 71.8 ml/min eGFR 82.64 BUN/Creatinine Ratio 15.5 (10-20) Glucose 92 (70-99(Fasting)) mg/dl Calcium 8.2 L (8.6-10.3) mg/dl Iron < 10 L (35-175) mcg/dl Unsaturated IBC 311 (155-355) mcg/dl Transferrin 246 (200-360) mg/dl Ferritin 4.5 L (8-388) ng/ml Total Bilirubin (0.2-1.0) mg/dl AST (13-39) U/L ALT (7-52) U/L Alkaline Phosphatase (34-104) U/L Troponin I High Sens 4.5 (0-20) pg/ml Total Protein (6.0-8.3) gm/dl Albumin (3.4-5.0) gm/dl Globulin (2.5-4.0) gm/dl Albumin/Globulin Ratio (0.9-2) Lipase (11-82) U/L Vitamin B12 402 (180-914) pg/ml Folate 15.10 (>5.38) ng/ml Urine Color Urine Appearance (Clear) Urine pH (4.5-7.5) Ur Specific [place] (1.000-1.030) Urine Protein (Negative) Urine Glucose (UA) (Negative) Urine Ketones (Negative) Urine Blood (Negative) Urine Nitrite (Negative) Urine Bilirubin (Negative) Urine Urobilinogen (Negative) Ur Leukocyte Esterase (Negative) Urine Comment Blood Type Blood Type Recheck A Positive Antibody Screen Crossmatch 04/10/25 04/10/25 Range/Units 14:56 14:18 WBC 5.90 (4.8-10.8) K/ul RBC 2.55 L (4.70-6.10) M/uL Hgb 6.0 L* (14.0-18.0) g/dl Hct 19.6 L* (42.0-52.0) % MCV 76.9 L (80.0-100.0) fL MCH 23.5 L (25.0-34.0) pg MCHC 30.6 L (32.0-36.0) g/dL RDW Std Deviation 46.7 H (36.4-46.3) fL RDW Coeff of Tami 16.6 H (11.5-14.5) % Plt Count 326 (130-400) K/uL MPV 10.4 (9.4-12.4) fL Immature Gran % (Auto) 0.2 % Neut % (Auto) 69.3 % Lymph % (Auto) 23.1 % [place] % (Auto) 6.6 % Eos % (Auto) 0.3 % Baso % (Auto) 0.5 % Neut # (Auto) 4.09 (1.40-6.50) K/uL Lymph # (Auto) 1.36 (1.20-3.40) K/uL [place] # (Auto) 0.39 (0.11-0.59) K/uL Eos # (Auto) 0.02 (0.00-0.50) K/uL Baso # (Auto) 0.03 (0.00-0.20) K/uL Immature Gran # (Auto) 0.01 (0.01-0.20) K/uL Polychromasia 1+ Hypochromasia Present PT (9.0-12.0) Seconds INR (0.9-1.1) Sodium 137 (136-145) mmol/L Potassium 3.9 (3.5-5.1) mmol/L Chloride 105 (98-107) mmol/L Carbon Dioxide 26 (21-32) mmol/L Anion Gap 6 (3-11) BUN 21 (6-23) mg/dl Creatinine 1.03 (0.6-1.4) mg/dl Est Cr Clr Drug Dosing 72.2 ml/min eGFR 82.64 BUN/Creatinine Ratio 20.4 H (10-20) Glucose 99 (70-99(Fasting)) mg/dl Calcium 8.8 (8.6-10.3) mg/dl Iron (35-175) mcg/dl Unsaturated IBC (155-355) mcg/dl Transferrin (200-360) mg/dl Ferritin (8-388) ng/ml Total Bilirubin 0.3 (0.2-1.0) mg/dl AST 13 (13-39) U/L ALT 10 (7-52) U/L Alkaline Phosphatase 114 H (34-104) U/L Troponin I High Sens (0-20) pg/ml Total Protein 6.0 (6.0-8.3) gm/dl Albumin 3.5 (3.4-5.0) gm/dl Globulin 2.5 (2.5-4.0) gm/dl Albumin/Globulin Ratio 1.4 (0.9-2) Lipase 43 (11-82) U/L Vitamin B12 (180-914) pg/ml Folate (>5.38) ng/ml Urine Color Yellow Urine Appearance Clear (Clear) Urine pH 5.5 (4.5-7.5) Ur Specific [place] 1.025 (1.000-1.030) Urine Protein Negative (Negative) Urine Glucose (UA) Negative (Negative) Urine Ketones 1+ H (Negative) Urine Blood Negative (Negative) Urine Nitrite Negative (Negative) Urine Bilirubin Negative (Negative) Urine Urobilinogen Negative (Negative) Ur Leukocyte Esterase Negative (Negative) Urine Comment Blood Type A Positive Blood Type Recheck Antibody Screen NEGATIVE Crossmatch See Detail
--- NOTE | 2025-04-11 11:52 | Hospitalist Progress Note ---
Date of Service April 11, 2025 Assessment & Plan (1) Abdominal pain: (2) GI bleed: (3) Anemia: Plan: 59 year old male with PMH of tobacco use, reported "Blood cancer", otherwise hasn't followed with PCP for many years presented to ER with c/o N/V and upper a bdominal pain, decreased oral intake and 40 pound weight loss x 3 months. #Gastric Ulcer #Symptomatic anemia In ER vitals stable, Hb 6.0, FOBT +ve CT Abd/pelvis: Findings suspicious for gastritis with possible gastric ulcer. No bowel obstruction, bowel wall thickening or pneumoperitoneum. Trace pelvic ascites. Colonic diverticulosis. Status post 2 unit PRBC, patient reports improvement in his strength/fatigability. Hemoglobin 7.7 today. Patient reports improving nausea, reports improving upper abdominal pain. Continue with PPI drip. NPO. GI on board for possible EGD scope later today. Trend H&H, transfuse PRBC for hemoglobin less than 7 or for symptomatic anemia. Repeat H&H about 1 PM and then in the morning, repeat as needed. #Tobacco use Smoking for 48 years. Has cut back to 6 cigarettes daily Denies nicotine patch #Reported "blood cancer" Reports Blood cancer and pt points to his nose and internal eye region as source that was treated with radiation over 8 years ago [place] a [place] state Unclear diagnosis. No records available for review at this time Reports he has been local to the area about 7 years and has not established any local cancer doctor. Pt encouraged to establish and maintain w/ pcp follow up. DVT Prophylaxis: SCDs Full Code as per discussion with pt, however reports would not want maintained on ventilator if poor prognosis Does not follow with PCP for routine care Admission and Anticipated Discharge Date Admission Date: April 10, 2025 Subjective Patient was seen and examined at bedside. Patient was lying in bed, on room air, NAD, resting comfortably. Patient reports improvement in his abdominal pain but he still has some pain. Patient reports overall feeling better, denies fever/cough/sore throat/chest pa in. Patient denies any pain or burning while passing urine, denies any diarrhea. Patient reports nausea has improved. Physical Exam Physical Exam: General: no acute distress, +pale, ill appearing thin male Head: normocephalic, atraumatic Eyes: conjunctiva pale, anicteric ENT: normal inspection external ears, nose, mucous membranes moist Neck: supple, trachea midline Lungs: clear, no respiratory distress, no wheezing/rhonchi/rales CV: RRR, no pretibial edema Abd: normal BS, soft, +tenderness to palpation with guarding to epigastric region Ext: no cyanosis, no calf tenderness Neuro: A&O x 3, no focal deficits noted, normal affect Skin: +pale, warm, dry Results & Data Results & Data Vital Signs (Past 12 Hours) Vital Signs Temp Pulse Pulse Resp BP BP Pulse Ox 04/11/25 11:13 36.7 C 70 14 147/74 H 97 04/11/25 07:56 36.5 C 66 14 143/72 H 97 04/11/25 07:35 58 L 04/11/25 03:57 36.5 C 60 16 158/81 H 04/11/25 02:57 36.6 C 64 18 149/88 H 97 04/11/25 01:57 36.7 C 66 18 138/67 97 04/11/25 01:27 36.7 C 63 18 99 04/11/25 01:12 36.6 C 62 18 145/72 H 98 04/11/25 00:50 36.6 C 66 18 137/71 O2 Del Method 04/11/25 11:13 Room Air 04/11/25 07:56 Room Air 04/11/25 07:35 04/11/25 03:57 04/11/25 02:57 04/11/25 01:57 04/11/25 01:27 04/11/25 01:12 04/11/25 00:50 (1) Abdominal pain Abdominal location: generalized Qualified Code(s): R10.84 - Generalized abdominal pain (2) GI bleed GI bleed type/associated pathology: unspecified gastrointestinal hemorrhage type Qualified Code(s): K92.2 - Gastrointestinal hemorrhage, unspecified
[2025-04-11] MEDS: SODIUM CHLORIDE 0.9% 500 ML IV SCH (12:35)
[2025-04-11] MEDS: LIDOCAINE 2% 2 ML VIAL/AMP(20MG/ML) INFIL ONE (14:03)
[2025-04-11] MEDS: PROPOFOL IV EMULSION 10 MG/ML 20 ML VIAL IV ONE (14:03)
--- NOTE | 2025-04-11 14:26 | Anesthesiology Progress Note ---
Date of Service April 11, 2025 Anesthesia Post Procedure Vital Signs Vital Signs: Temp Pulse Pulse Pulse Pulse Resp BP 04/11/25 13:50 64 16 04/11/25 13:35 65 16 04/11/25 13:21 70 16 04/11/25 12:27 36.6 C 56 L 18 04/11/25 11:13 36.7 C 70 14 04/11/25 07:56 36.5 C 66 14 04/11/25 07:35 58 L 04/11/25 03:57 36.5 C 60 16 158/81 H 04/11/25 02:57 36.6 C 64 18 149/88 H 04/11/25 01:57 36.7 C 66 18 138/67 04/11/25 01:27 36.7 C 63 18 04/11/25 01:12 36.6 C 62 18 145/72 H 04/11/25 00:50 36.6 C 66 18 137/71 04/10/25 22:00 62 04/10/25 21:46 36.7 C 63 18 154/82 H 04/10/25 20:55 36.8 C 62 18 153/70 H 04/10/25 20:39 36.9 C 65 18 148/75 H 04/10/25 20:37 36.9 C 65 18 04/10/25 19:55 36.9 C 61 18 153/73 H 04/10/25 19:37 04/10/25 19:37 36.7 C 79 18 04/10/25 19:30 79 04/10/25 19:29 36.7 C 79 18 04/10/25 18:55 37.1 C 67 16 151/72 H 04/10/25 18:27 74 16 147/71 H 04/10/25 18:25 37.1 C 67 18 147/71 H 04/10/25 18:10 37.2 C 68 16 147/71 H 04/10/25 17:54 36.8 C 78 16 146/70 H 04/10/25 17:13 78 18 04/10/25 16:00 72 16 BP BP Pulse Ox O2 Del Method O2 Flow Rate 04/11/25 13:50 154/72 H 96 Room Air 04/11/25 13:35 149/73 H 98 Room Air 04/11/25 13:21 138/72 96 Room Air 10/21/25 12:27 159/73 H 99 Room Air 04/11/25 11:13 147/74 H 97 Room Air 04/11/25 07:56 143/72 H 97 Room Air 04/11/25 07:35 04/11/25 03:57 04/11/25 02:57 97 04/11/25 01:57 97 04/11/25 01:27 99 04/11/25 01:12 98 04/11/25 00:50 04/10/25 22:00 04/10/25 21:46 04/10/25 20:55 04/10/25 20:39 04/10/25 20:37 148/75 H 98 Room Air 04/10/25 19:55 96 04/10/25 19:37 Room Air 04/10/25 19:37 153/73 H 100 Room Air 04/10/25 19:30 04/10/25 19:29 153/73 H 100 Room Air 04/10/25 18:55 97 04/10/25 18:27 100 Room Air 04/10/25 18:25 99 0 04/10/25 18:10 99 0 04/10/25 17:54 98 0 04/10/25 17:13 149/77 H 99 Room Air 04/10/25 16:00 136/91 100 Room Air Pain Intensity Abdomen: Pain Intensity: 3 Transfer of Care Handoff Completed per policy Notes Mental Status: alert / awake / arousable and participated in evaluation Nausea / Vomiting: adequately controlled Pain: adequately controlled Airway Patency, RR, SpO2: stable & adequate BP & HR: stable & adequate Hydration State: stable & adequate Anesthetic Complications: no major complications apparent and Pt Satisfied with anesthetic care
[2025-04-11 14:32] VITALS: RESP 18
[2025-04-11 15:03] LABS: Hematocrit (blood only) 28.1 % (42.0-52.0); Hemoglobin 9.3 g/dl (14.0-18.0)
--- NOTE | 2025-04-12 05:55 | Electrocardiogram Report ---
Test Reason : Blood Pressure : */* mmHG Vent. Rate : 74 BPM Atrial Rate : 74 BPM P-R Int : 156 ms QRS Dur : 92 ms QT Int : 400 ms P-R-T Axes : 76 77 55 degrees QTcB Int : 444 ms Normal sinus rhythm Normal ECG No previous ECGs available Confirmed by Mendoza Segal ([id number]) on 04/12/2025 5:55:13 AM Referred By: REFERRED SELF Confirmed By: Mendoza Segal
[2025-04-12 07:29] LABS: Hematocrit (blood only) 24.5 % (42.0-52.0); Hemoglobin 8.3 g/dl (14.0-18.0); Mean Corpuscular Hemoglobin 25.7 pg (25.0-34.0); Mean Corpuscular Volume 75.9 fL (80.0-100.0); Platelet Count 268 K/uL (130-400); RDW Standard Deviation 46.4 fL (36.4-46.3); Red Blood Count 3.23 M/uL (4.70-6.10); White Blood Count 6.33 K/ul (4.8-10.8)
[2025-04-12 07:48] LABS: Anion Gap 6.0 (3-11); Blood Urea Nitrogen 11.0 mg/dl (6-23); Calcium 8.3 mg/dl (8.6-10.3); Carbon Dioxide 25.0 mmol/L (21-32); Chloride 108.0 mmol/L (98-107); Creatinine Clr Calc Pharmacy 74.5 ml/min; Glucose 85.0 mg/dl (70-99(Fasting)); Magnesium 1.7 mg/dl (1.7-2.4); Potassium 3.9 mmol/L (3.5-5.1); Sodium 139.0 mmol/L (136-145)
--- NOTE | 2025-04-12 11:09 | Gastroenterology Progress Note ---
Date of Service April 12, 2025 Assessment & Plan (1) Anemia: (2) GI bleed: (3) Weight loss: Plan 59 year old male with history of tobacco use, unspecified cancer s/p chemo/radiation about 6 years ago who presented to the ED w/ abd pain, nausea/vomiting and weight loss - admitted w/ abnormal imaging w/ diffuse wall thickening throughout the stomach, CASSIA requiring 2 units RBCs. EGD revealed severe gastritis with hypertrophic folds consistent with linitis plastica vs. hypertrophic gastritis. Biopsies pending. Clinically patient reports no issues today. Hgb is 8.3g/dl down from 9.3g/dl. (1) Gastritis/Weight loss/Abnormal GI imaging/EGD - severe gastritis with hypertrophic folds consistent with linitis plastica vs. hypertrophic gastritis. Biopsies pending. - Recommend ongoing treatment with BID PPI. - If Biopsies are negative recommend f/u FNA with EUS for further evaluation of gastric folds. I will have placed an urgent consult with [facility]. - Of note an outpatient colonoscopy was mentioned earlier in the hospitalization. After completion of EGD, Dr. Ledesma feels he would tolerate an outpatient prep poorly. Recommend further evaluation with EUS with FNA prior to schedule OP Colonoscopy. - Thank you for allowing us to participate in the care of this patient. Please call with any acute changes, questions or concerns. Please see addendum below with additional recommendation from my supervising physician. Admission and Anticipated Discharge Date Admission Date: April 10, 2025 Supervising Physician Co-Signing Physician Notes I personally saw and examined the patient. I have reviewed the chart and agree with the documentation provided by the RIPSAW GRADER including discussion about the asses sment, treatment and plan. Briefly, he ate some chicken but vomited. I told him that he do better with boost protein shake and some pured food. We will set up an outpatient appointment with Dr. Kym Morris at [facility] to get an EUS FNA of his stomach. My concern is lienitis plastica or poorly differentiated gastric adenocarcinoma leading to a lot of his symptoms that is diffuse and not allowing for his stomach to relax Subjective 59 year old male with history of tobacco use, unspecified cancer s/p chemo/radiation about 6 years ago who presented to the ED w/ abd pain, nausea/vomiting and weight loss - admitted w/ abnormal imaging w/ diffuse wall thickening throughout the stomach with possible mucosal ulceration of the dependent gastric body/lesser curvature, CASSIA requiring 2 units RBCs He underwent EGD which revealed an severe gastritis with hypertrophic folds consistent with linitis plastica vs. hypertrophic gastritis. Given the history of 50 pound weight loss recommend further evaluation with EUS and FNA if the biopsies return non-diagnostics. Today patient reports he's doing well. No concerns. He denies any abdominal pain, N/V/D, melena or hematochezia. Pertinent Diagnostics EGD reviewed 04/11/25 Hgb 8.3 g/dl (down from 9.3g/dl yesterday). Renal function unremarkable. Review of Systems Review of Systems: See HPI Physical Exam Physical Exam: Constitutional: NAD. Alert. Answering questions appropriately. Respiratory: Breathing is even, non-labored. Lungs tony are clear to auscultation anteriorly. Cardiovascular: Regular Rate and Rhythm, no murmurs, rubs or gallops appreciated. Gastrointestinal (Abdomen): Normoactive bowel sounds x4, soft, non-distended, non-tender. Musculoskeletal: Lying in bed comfortably. No peripheral edema. Results & Data Results & Data Vital Signs (Past 12 Hours) Vital Signs Temp Pulse Pulse Pulse Resp BP BP 04/12/25 08:04 97.9 F 69 18 122/70 04/12/25 07:12 64 04/12/25 03:01 98.2 F 67 18 135/70 Pulse Ox O2 Del Method 04/12/25 08:04 98 Room Air 04/12/25 07:12 04/12/25 03:01 95 Room Air PG Care Time/CCT Total # of Minutes Spent Total Time Spent with Patient: Total time spent is greater than 50% in coordination of care (as documented) at patient's floor/unit and/or counseling patient: Coding Level of Care Code 85768 SUB INP/OBS CARE 3/50MIN Diagnoses Anemia D64.9 GI bleed K92.2 GI bleed type/associated pathology: unspecified gastrointestinal hemorrhage type Weight loss R63.4 (2) GI bleed GI bleed type/associated pathology: unspecified gastrointestinal hemorrhage type Qualified Code(s): K92.2 - Gastrointestinal hemorrhage, unspecified
[2025-04-12 12:19] LABS: Hematocrit (blood only) 26.6 % (42.0-52.0); Hemoglobin 8.5 g/dl (14.0-18.0)
--- NOTE | 2025-04-12 12:39 | Discharge Summary ---
Date of Service April 12, 2025 Admission HPI Per Admitting Provider Patient is a 59 year old male with PMH tobacco use and he reports h/o "Blood cancer and points to his nose and internal eye region as source" that was treated with radiation over 8 years ago [place], otherwise hasn't followed with PCP for many years presented to ER with c/o N/V and upper abdominal pain x 3 months. Patient reports for the past 3 months has been having nausea, vomiting, and epigastric discomfort. is unable to eat or drink secondary to nausea and vomiting soon after attempted oral intake. He reports he has not been examining stools. Reports has been having constipation as he has been having very limited oral intake. Reports has lost over 40 pounds in the past 3 months. Denies aspirin, NSAID use. rarely consumes EtOH and has not been consuming for past couple months since having nausea and abdominal pain. Denies night sweats, heartburn or indigestion, history ulcer or GI bleed. Denies history of blood transfusion. Erik has been getting SOB with exertion past month. States came today as family was urging him to be evaluated. has dry cough that he feels is from dry throat and needing to clear his throat. Denies fever/chills, diaphoresis, hematemesis, KRAMER, dizziness, syncope, CP, palpitations, sore throat, rhinorrhea, paresthesias, weakness, extremity edema, rashes, urinary symptoms. Discharge Data Allergies Allergy/AdvReac Type Severity Reaction Status Date / Time No Known Allergies Allergy Unverified 04/11/25 12:26 Consultations 04/10/25 16:45 ED Decision to Admit Stat 04/10/25 19:29 Consult Gastroenterology Routine Procedures Performed Operation Date: 04/11/25 16:55 Actual Procedures p EGD Biopsy Cytology - Omero Ledesma MD Ordered Studies 04/10/25 13:58 CT Abd and Pelvis [CT abd pelvis IV con only] Stat Discharge Plan Discharge Items Patient Disposition: Home - Self-Care Reason For Visit: ANEMIA, GI BLEED Discharge Diagnosis: Gastritis Anemia Gastrointestinal bleeding Condition on Discharge: Good Activity: Resume your previous activity Non-emergency contact: Primary Care Provider and Mathematics Professor Call non-emergency contact if: you have any medication questions Follow-up/Referrals: Koptchak,Monique L., PA-C [Outside Practitioners] - 04/26/25 12:20 pm PCP,NO [Primary Care Provider] - Diet: Regular Addtl Attending Provider Instructions: Mr Calhoun. You were evaluated and managed for the above listed diagnoses. You had upper endoscopy (EGD) which showed signs of inflammation and biopsies were taken. Please follow up with your Primary Doctor who will follow up results of biopsy. You also need to follow up with Gastroenterology who may get EUS with FNA if these biopsies are negative. You were started on pantoprazole 40mg twice a day It was a pleasure taking care of you. Pending Studies at Discharge: Yes (Biopsy results) Stand-Alone Forms: My [facility], Smoking Cessation Medications and DC Order Prescriptions: New pantoprazole 40 mg tablet,delayed release (DR/EC) 40 mg PO BID Qty: 60 0RF Discharge Orders: Discharge Order (Routine); Ordered 04/12/25 Ordered By: Marcela Guo Admission Data Admit Date/Time: 04/10/25 16:53 Attending Provider: Marcela Guo I. Admit Provider: Yemi Ferrera Primary Care Provider: PCP,ALBERTO Other Providers: Omero Ledesma; Yemi Ferrera; Xiomara Stern Other Interventions: Discharge Summary Assessment (RN) Last Done: 04/11/25 13:38
[2025-04-12] MEDS: ONDANSETRON INJ 2 MG/ML 2 ML VIAL IV PRN (13:08)
--- NOTE | 2025-04-12 15:47 | Hospitalist Progress Note ---
Date of Service April 12, 2025 Assessment & Plan (1) Abdominal pain: (2) GI bleed: (3) Anemia: Plan: 59 year old male with PMH of tobacco use, reported "Blood cancer", otherwise hasn't followed with PCP for many years presented to ER with c/o N/V and upper a bdominal pain, decreased oral intake and 40 pound weight loss x 3 months. #Gastritis #Symptomatic anemia In ER vitals stable, Hb 6.0, FOBT +ve CT Abd/pelvis: Findings suspicious for gastritis with possible gastric ulcer. No bowel obstruction, bowel wall thickening or pneumoperitoneum. Trace pelvic ascites. Colonic diverticulosis. Status post 2 unit PRBC S/P EGD yesterday 04/11/25 which showed findings suggestive of linitis plastica vs hypertrophic gastritis. Had biopsies done Hb is stable in 8s this AM GI recommended Pantoprazole 40mg BID and may need outpatient EUS with FNA Initial plan was to discharge patient today. However, after vomiting with lunch, plan was changed to do pureed for dinner to assess tolerance prior to dc. However, Pathology notified GI that preliminary biopsy findings suggestive linitis plastica or poorly differentiated adenocarcinoma of stomach GI recommends getting Oncology eval while inpatient Updated patient and mother about finding Oncology consulted #Tobacco use Smoking for 48 years. Has cut back to 6 cigarettes daily Not interested in quitting at this time #Reported "blood cancer" Reports Blood cancer and pt points to his nose and internal eye region as source that was treated with radiation over 8 years ago [place] a [place] Unclear diagnosis. No records available for review at this time Reports he has been local to the area about 7 years and has not established any local cancer doctor. Pt encouraged to establish and maintain w/ pcp follow up. DVT Prophylaxis: SCDs Full Code I spent a total of 60 minutes coordinating, documenting and providing care for this patient excluding time spent in performance of separately billed services Admission and Anticipated Discharge Date Admission Date: April 10, 2025 Subjective Patient was seen earlier and examined Denied any complaints earlier in AM However, had vomiting after lunch. Physical Exam Constitutional: + well hydrated; no acute distress Eyes: PERRL, conjunctivae normal, anicteric sclerae ENMT: external ear and nose normal, oropharynx normal Respiratory: normal respiratory effort, lungs clear to auscultation Cardiovascular: Rate/Rhythm: regular rate and regular rhythm Gastrointestinal (Abdomen): normal bowel sounds, soft, nontender, no hepatosplenomegaly Neurologic: PERRL, EOMI, accommodation nl, no face palsy, no dysarthria Psychiatric: A+Ox3, euthymic affect Results & Data Results & Data Vital Signs (Past 12 Hours) Vital Signs Temp Pulse Pulse Resp BP Pulse Ox O2 Del Method 04/12/25 15:25 36.5 C 69 18 123/78 98 Room Air 04/12/25 14:41 56 L 04/12/25 11:16 36.4 C L 72 18 120/69 99 Room Air 04/12/25 08:04 36.6 C 69 18 122/70 98 Room Air 04/12/25 07:12 64 Laboratory Results Abnormal lab results 04/12/25 04/12/25 Range/Units 06:33 11:42 RBC 3.23 L (4.70-6.10) M/uL Hgb 8.3 L 8.5 L (14.0-18.0) g/dl Hct 24.5 L 26.6 L (42.0-52.0) % MCV 75.9 L (80.0-100.0) fL RDW Std Deviation 46.4 H (36.4-46.3) fL RDW Coeff of Tami 16.9 H (11.5-14.5) % Chloride 108 H (98-107) mmol/L Calcium 8.3 L (8.6-10.3) mg/dl (1) Abdominal pain Abdominal location: generalized Qualified Code(s): R10.84 - Generalized abdominal pain (2) GI bleed GI bleed type/associated pathology: unspecified gastrointestinal hemorrhage type Qualified Code(s): K92.2 - Gastrointestinal hemorrhage, unspecified
--- NOTE | 2025-04-12 16:49 | Oncology Consultation ---
Date of Consultation April 12, 2025 Assessment & Plan (1) Gastric cancer: Will schedule an outpatient follow-up to start outpatient evaluation and workup including a PET CT scan, Mediport placement, surgical oncology consultation and further recommendations. For now transfuse to maintain hemoglobin greater than 8 g/dL. Plan Thank you for this interesting oncological consult. A total of 60 minutes was spent in counseling, coordination of care, review of prior records. History of Present Illness Reason for Consultation: Gastric cancer Attending Physician: Marcela Guo MD History of Present Illness the patient is a very pleasant 59-year-old male who was initially admitted to [facility] on April 10, 2025 with upper GI bleeding. subsequently he had an upper GI endoscopy, performed on 04/11/2025 which revealed diffuse severe inflammation and erythema in the gastric body, biopsies were taken which were positive for gastric cancer. Medical oncology has been consulted to assist in management of this patient with newly identified stomach cancer. Allergies Allergy/AdvReac Type Severity Reaction Status Date / Time No Known Allergies Allergy Unverified 04/11/25 12:26 Home Medications Medication Instructions Recorded Confirmed Type pantoprazole 40 mg tablet,delayed 40 mg PO BID #60 tabs 04/12/25 Rx release Patient History Medical History Tobacco use Surgical History Hx of tonsillectomy History of appendectomy Family History Other Coronary heart disease Diabetes Hypertension Social History Smoking Status: Current every day smoker Tobacco Type: Cigarettes Cigarettes Per Day: 5-7; Second Hand Exposure: No; Do You Dip or Chew Tobacco: No; Hx Alcohol Use: Yes Alcohol type: beer and wine Alcohol Intake Frequency: Monthly or Less Hx Substance Use: No Preferred Language: Mauritanian Communication Ability: Effective Mold Forms Builder Required: No Beliefs That Will Affect Care: None Current Living Situation: Spouse Feels Safe at Home: Yes Assistive Devices: None Review of Systems Review of Systems: All systems reviewed & are unremarkable except as noted in HPI & below Constitutional: as per Subjective / HPI Eyes: as per Subjective / HPI Ear, Nose, Mouth, Throat: as per Subjective / HPI Respiratory: as per Subjective / HPI Cardiovascular: as per Subjective / HPI Gastrointestinal: as per Subjective / HPI Genitourinary: + as per Subjective / HPI Musculoskeletal: as per Subjective / HPI Integumentary: as per Subjective / HPI Neurologic: as per Subjective / HPI Psychiatric: as per Subjective / HPI Endocrine: as per Subjective / HPI Hematologic / Lymphatic: as per Subjective / HPI Physical Exam Constitutional: WD/WN, vitals as above Eyes: PERRL, conjunctivae normal, anicteric sclerae ENMT: external ear and nose normal, oropharynx normal Neck: trachea midline, no thyromegaly Respiratory: normal respiratory effort, lungs clear to auscultation Cardiovascular: RRR, no murmur, no edema Gastrointestinal (Abdomen): normal bowel sounds, soft, nontender, no hepatosplenomegaly Musculoskeletal: no cyanosis or clubbing, extremities motor strength 5/5 Skin: no rashes, warm and dry Neurologic: patellar DTR's 2+ bilat, sensation intact Psychiatric: A+Ox3, euthymic affect Results & Data Vital Signs (Past 12 Hours) Vital Signs Temp Pulse Pulse Resp BP Pulse Ox O2 Del Method 04/12/25 15:25 36.5 C 69 18 123/78 98 Room Air 04/12/25 14:41 56 L 04/12/25 11:16 36.4 C L 72 18 120/69 99 Room Air 04/12/25 08:04 36.6 C 69 18 122/70 98 Room Air 04/12/25 07:12 64
[2025-04-13 03:04] VITALS: TEMP 98.2
[2025-04-13 06:33] LABS: Hematocrit (blood only) 24.8 % (42.0-52.0); Hemoglobin 7.8 g/dl (14.0-18.0); Mean Corpuscular Hemoglobin 24.4 pg (25.0-34.0); Mean Corpuscular Volume 77.5 fL (80.0-100.0); Platelet Count 263 K/uL (130-400); RDW Standard Deviation 47.4 fL (36.4-46.3); Red Blood Count 3.20 M/uL (4.70-6.10); White Blood Count 6.19 K/ul (4.8-10.8)
[2025-04-13 07:37] VITALS: PULSE 65
[2025-04-13 08:26] VITALS: O2SAT 95
[2025-04-13 08:36] LABS: Anion Gap 7.0 (3-11); Calcium 8.3 mg/dl (8.6-10.3); Carbon Dioxide 26.0 mmol/L (21-32); Chloride 107.0 mmol/L (98-107); Magnesium 1.7 mg/dl (1.7-2.4); Potassium 4.0 mmol/L (3.5-5.1); Sodium 140.0 mmol/L (136-145)
[2025-04-13 08:42] LABS: Blood Urea Nitrogen 10.0 mg/dl (6-23); Creatinine Clr Calc Pharmacy 68.2 ml/min; Glucose 92.0 mg/dl (70-99(Fasting))
--- NOTE | 2025-04-13 10:03 | Discharge Summary ---
Date of Service April 13, 2025 Admission HPI Per Admitting Provider Patient is a 59 year old male with PMH tobacco use and he reports h/o "Blood cancer and points to his nose and internal eye region as source" that was treated with radiation over 8 years ago [place], otherwise hasn't followed with PCP for many years presented to ER with c/o N/V and upper abdominal pain x 3 months. Patient reports for the past 3 months has been having nausea, vomiting, and epigastric discomfort. is unable to eat or drink secondary to nausea and vomiting soon after attempted oral intake. He reports he has not been examining stools. Reports has been having constipation as he has been having very limited oral intake. Erik has lost over 40 pounds in the past 3 months. Denies aspirin, NSAID use. rarely consumes EtOH and has not been consuming for past couple months since having nausea and abdominal pain. Denies night sweats, heartburn or indigestion, history ulcer or GI bleed. Denies history of blood transfusion. Erik has been getting SOB with exertion past month. came today as family was urging him to be evaluated. has dry cough that he feels is from dry throat and needing to clear his throat. Denies fever/chills, diaphoresis, hematemesis, KRAMER, dizziness, syncope, CP, palpitations, sore throat, rhinorrhea, paresthesias, weakness, extremity edema, rashes, urinary symptoms. Admission Exam Per Admitting Provider General: no acute distress, +pale, ill appearing thin male Head: normocephalic, atraumatic Eyes: conjunctiva pale, anicteric ENT: normal inspection external ears, nose, mucous membranes moist Neck: supple, trachea midline Lungs: clear, no respiratory distress, no wheezing/rhonchi/rales CV: RRR, no pretibial edema Abd: normal BS, soft, +tenderness to palpation with guarding to epigastric region, RUQ and LUQ Ext: no cyanosis, no calf tenderness Neuro: A&O x 3, no focal deficits noted, normal affect Skin: +pale, warm, dry Principal Diagnosis Gastric cancer Anemia Gastrointestinal bleeding Discharge Exam Constitutional + well hydrated; no acute distress Eyes PERRL, conjunctivae normal, anicteric sclerae ENMT external ear and nose normal, oropharynx normal Respiratory normal respiratory effort, lungs clear to auscultation Cardiovascular Rate/Rhythm: regular rate and regular rhythm Gastrointestinal (Abdomen) normal bowel sounds, soft, nontender, no hepatosplenomegaly Neurologic PERRL, EOMI, accommodation nl, no face palsy, no dysarthria Psychiatric A+Ox3, euthymic affect Discharge Data Allergies Allergy/AdvReac Type Severity Reaction Status Date / Time No Known Allergies Allergy Unverified 04/11/25 12:26 Consultations 04/10/25 16:45 ED Decision to Admit Stat 04/10/25 19:29 Consult Gastroenterology Routine 04/12/25 15:45 Consult Oncology Routine Procedures Performed Operation Date: 04/11/25 16:55 Actual Procedures p EGD Biopsy Cytology - Omero Ledesma MD Ordered Studies 04/10/25 13:58 CT Abd and Pelvis [CT abd pelvis IV con only] Stat Hospital Course (1) Abdominal pain: (2) GI bleed: (3) Anemia: 59 year old male with PMH of tobacco use, reported "Blood cancer", otherwise hasn't followed with PCP for many years presented to ER with c/o N/V and upper abdominal pain, decreased oral intake and 40 pound weight loss x 3 months. #Gastric cancer, new diagnosis #Symptomatic anemia In ER vitals stable, Hb 6.0, FOBT +ve CT Abd/pelvis: Findings suspicious for gastritis with possible gastric ulcer. No bowel obstruction, bowel wall thickening or pneumoperitoneum. Trace pelvic ascites. Colonic diverticulosis. Status post 2 unit PRBC S/P EGD on 04/11/25 which showed findings suggestive of linitis plastica vs hypertrophic gastritis. Had biopsies done GI recommended Pantoprazole 40mg BID Biopsy revealed Gastric adenocarcinoma Oncology was consulted and recommends follow up outpatient for further eval and management. Appt set up Patient updated on findings and plan #Tobacco use Smoking for 48 years. Has cut back to 6 cigarettes daily Not interested in quitting at this time #Reported "blood cancer" Reports Blood cancer and pt points to his nose and internal eye region as source that was treated with radiation over 8 [place] ago [place] Unclear diagnosis. No records available for review at this time Reports he has been local to the area about 7 years and has not established any local cancer doctor. Pt encouraged to establish and maintain w/ pcp follow up. Appt was set up Total Time Total Time Spent Total Time Spent (In Minutes): 45 Total Time Includes: Examination of the Patient, Discharge Planning and Medication Reconciliation Discharge Plan Discharge Items Patient Disposition: Home - Self-Care Reason For Visit: ANEMIA, GI BLEED Discharge Diagnosis: Gastric cancer Anemia Gastrointestinal bleeding Condition on Discharge: Good Activity: Resume your previous activity Non-emergency contact: Primary Care Provider and Fleet Maintenance Manager Call non-emergency contact if: you have any medication questions Follow-up/Referrals: Monique Roberts PA-C [Outside Practitioners] - 04/26/25 12:20 pm Eran Arana MD [Physician] - 04/14/25 7:40 am (-He will come around to the back of [facility] to the [facility] ([facility] [address], [place], [address]). -Take the elevator to the first floor and check in at the front line leader.) Diet: Regular Addtl Attending Provider Instructions: Mr Calhoun. You were evaluated and managed for the above listed diagnoses. You had upper endoscopy (EGD) which showed signs of inflammation and biopsies were taken which showed stomach cancer. Please follow up with your Primary Doctor Please ensure follow up with Oncology for further evaluation and treatment You were started on pantoprazole 40mg twice a day It was a pleasure taking care of you. Pending Studies at Discharge: Yes (Biopsy results) Stand-Alone Forms: My [facility] [place], Smoking Cessation Medications and DC Order Prescriptions: New pantoprazole 40 mg tablet,delayed release (DR/EC) 40 mg PO BID Qty: 60 0RF Discharge Orders: Discharge Order (Routine); Ordered 04/13/25 Ordered By: Marcela Price/Other Patient Handouts: ED Upper GI Bleeding (Stable) Admission Data Admit Date/Time: 04/10/25 16:53 Attending Provider: Marcela Guo I. Admit Provider: Yemi Ferrera Primary Care Provider: PCP,NO Other Providers: Omero Ledesma; Yemi Ferrera; Xiomara Stern; Eran Arana Other Interventions: Discharge Summary Assessment (RN) Last Done: 04/13/25 10:22
[2025-04-13 10:23] VITALS: BP 135/70
== END 2025-04-13 11:06 | disposition home or self-care (01) | DRG 374 ==
LOC: ED 13:32 → SUATTDRO 16:53 → 2N 16:53